=== PATIENT | female | born 1950 | race Caucasian/White ===

== ENCOUNTER → 2017-09-23 | Outpatient (CLI) | payer MEDICARE, BC ==
--- NOTE | 2017-09-23 12:20 | XR ---
EXAMINATION TYPE: XR humerus RT DATE OF EXAM: 09/23/2017 COMPARISON: NONE HISTORY: Pain TECHNIQUE: 2 views submitted. 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 IMPRESSION: 1. No acute fracture or dislocation.
--- NOTE | 2017-09-23 12:21 | XR ---
EXAMINATION TYPE: XR shoulder complete RT DATE OF EXAM: 09/23/2017 COMPARISON: NONE HISTORY: Pain TECHNIQUE: Three views are submitted. FINDINGS: The osseous structures are intact. There is no acute fracture or dislocation. The AC joint arthropa thy noted.. IMPRESSION: 1. No acute process.
== END | disposition home or self-care (01) ==
LOC: RADXRMAIN 11:58
PROVIDERS: ATTEND Family Medicine
DX: R52 Pain, unspecified (principal)

== ENCOUNTER → 2024-08-23 | Outpatient (CLI) | payer MEDICARE ==
--- NOTE | 2024-08-24 12:45 | BD ---
EXAMINATION TYPE: Axial Bone Density DATE OF EXAM: 08/23/2024 CLINICAL HISTORY: 74 years old Female. ICD-10 CODE: Z78.0 POST MENOPAUSAL Height: 59.5 Weight: 208 FRAX RISK QUESTIONS: Secondary Osteoporosis: RISK FACTORS HISTORY OF: MEDICATIONS: EXAM MEASUREMENTS: Bone mineral densitometry was performed using the [employer] System. Bone mineral density as measured about the Lumbar spine is: ----- L1-L4(G/cm2): 0.870 T Score Values are as follows: ----- L1: -2.1 ----- L2: -3.4 ----- L3: -3.1 ----- L4: -2.1 ----- L1-L4: -2.6 Z Score Values are as follows: ----- L1: -1.3 ----- L2: -2.7 ----- L3: -2.4 ----- L4: -1.3 ----- L1-L4: -1.8 First dexa at [facility] Bone mineral density about the R hip (g/cm2): 0.996 Bone mineral density about the L hip (g/cm2): 1.099 T Score values are as follows: -----R Neck: -1.4 -----L Neck: -1.2 -----R Total: -0.1 -----L Total: 0.0 Z Score values are as follows: -----R Neck: -0.2 -----L Neck: 0.0 -----R Total: 0.9 -----L Total: 1.0 First dexa at [facility] FRAX%s: The graph provided illustrates a 9.5% chance for a major osteoporotic fx and a 1.6% chance fo r the hips probability for fx in 10 years time. IMPRESSION: Osteoporosis (T Score less than -2.5). There is increased fracture risk and therapy is usually indicated based on age. Re-Screen 1-2 years. NOTE: T-SCORE=SD OF THE YOUNG ADULT MEAN. [facility], Workstation: [email or web address], 08/24/2024 12:43 PM
== END ==
LOC: RADBDWWP 10:55
PROVIDERS: ATTEND Internal Medicine
CPT/HCPCS: 77080